=== PATIENT | male | born 1980 | race Caucasian/White ===

== ENCOUNTER 2016-03-28 21:29 | Emergency (ER) | payer BC ==
[2016-03-28] MEDS ORDERED: DEXAMETHASONE 4 MG TAB PO ONE (22:31)
--- NOTE | 2016-03-28 22:44 | UCPHY ---
H & P Time Seen by Provider: 03/28/16 22:25 Patient Type: Established HPI/ROS: This patient presents with subglottic swelling. He reports 2 days of symptoms were initially mild yesterday. He was seen in [place] at [facility] [address] this morning and started on Augmentin. He took 2875 mg doses and has been taking ibuprofen regularly with partial relief of the discomfort until tonight the discomfort became 2009 despite ibuprofen. He reports increasing odynophagia and now some pain extending into the right neck. He had some subjective low-grade fevers and myalgias prior to the treatment with the Augmentin. He reports that the urgent care had the impression that he had a salivary gland infection. ROS: No high fevers or chills. No other constitutional symptoms. No coughing. No recent dental procedures. No trauma. 7 point ROS is otherwise negative. Past Medical/Surgical History: Otherwise healthy Smoking Status: Never smoked Physical Exam: Physical Exam Vital signs are normal. He has no fever. He is no distress. General: No acute distress HEENT: Oropharynx: Mallampati 3 airway. There is subglottic swelling on the right side. He has mild submandibular tenderness on the right side that extends to the neck. No dysphonia. He does have mild trismus. No drooling or stridor. Ears: External canals and TMs are clear bilaterally. Eyes: Pupils equal and react to light. Extraocular motions are intact. Lungs: Clear to auscultation bilaterally. No respiratory distress. Cardiac: Regular rate and rhythm with no murmur gallop or rub Skin: No rash or pallor. Neuro: Alert with no sensorimotor deficits. Initial differential diagnosis: Renula, Tucker's angina other subglottic lesion Constitutional: Initial Vital Signs Temperature (C) 36.7 C 03/28/16 21:46 Heart Rate 90 03/28/16 21:46 Respiratory Rate 16 03/28/16 21:46 Blood Pressure 122/74 H 03/28/16 21:46 O2 Sat (%) 95 03/28/16 21:46 O2 Delivery Mode Room Air Allergies/Adverse Reactions: No Known Allergies Allergy (Verified 03/28/15 18:44) Home Medications: Medication Instructions Recorded Augmentin 875 MG TAB (*) 03/28/16 Medical Decision Making ED Course/Re-evaluation: Decadron 10 mg p. o.. We do not have CT imaging here tonight. I spoke with Dr. soto the emergency physician at [facility] accepts the patient for transfer for further evaluation. Discussion: The patient appears nontoxic here without fever. I suspect renewal out given lack of fever but with Augmentin antibiotic he may have a Tucker's angina early in its progress without significant findings other than the subglottic swelling. Departure - Departure Disposition: [facility] ER Clinical Impression: Ranula Condition: Good Additional Instructions: Diagnosis: Ranula (salivary gland swelling in floor of mouth) Plan: Go directly to [facility] Emergency Department without eating or drinking anything for further evaluation. Differential diagnosis for this problem could include infection that would require further acute medical attention. You received Decadron a steroid-10 mg dose while here - PQRS PQRS Measurement: NA
[2016-03-28 23:32] VITALS: TEMP 101.5
[2016-03-28] MEDS ORDERED: HYDROCODONE/APAP 5/325 TAB PO ONE (23:41)
[2016-03-28] MEDS ORDERED: IOPAMIDOL (ISOVUE-300) 100 ML BTL IV ONE (23:44)
[2016-03-28] MEDS ORDERED: ACETAMINOPHEN 500 MG TAB PO ONE (23:52)
[2016-03-28] MEDS ORDERED: ONDANSETRON 4 MG/2 ML VIAL IVP ONE (23:53)
--- NOTE | 2016-03-29 00:03 | EDPHY ---
H & P Time Seen by Provider: 03/28/16 22:25 HPI/ROS: HPI The patient presents with 2 days of pain in his right mouth, near the floor of his mouth. The pain started slowly and has gotten progressively worse. It has been associated with some drooling and now a fever. He was seen at the [place] urgent care and given a prescription for Augmentin, he has taken 2 doses. He has no prior history of similar. He has not had any recent dental procedures. He feels well otherwise.. REVIEW OF SYSTEMS Constitutional: + fever, no chills. Eyes: No discharge. ENT: No sore throat. Cardiovascular: No chest pain, no palpitations. Respiratory: No cough, no shortness of breath. Gastrointestinal: No abdominal pain, no vomiting. Genitourinary: No hematuria. Musculoskeletal: No back pain. Skin: No rashes. Neurological: No headache. PMHx: Healthy PHYSICAL General Appearance: Alert, no distress Eyes: Pupils equal and round no pallor or injection ENT, Mouth: Mucous membranes moist, floor of right mouth with area of fluctuance adjacent to his mandible which is tender with some surrounding fullness Neck: Full range of motion, right-sided lymphadenopathy is present, no tenderness, no erythema Respiratory: There are no retractions, lungs are clear to auscultation Cardiovascular: Regular rate and rhythm Gastrointestinal: Abdomen is soft and non-tender, no masses, bowel sounds normal Neurological: A&O, moves all extremities Skin: Warm and dry, no rashes Musculoskeletal: Neck is supple non tender Extremities: symmetrical, full range of motion Psychiatric: Patient is oriented X 3, there is no agitation Source: Patient Exam Limitations: No limitations - Personal History Tetanus Vaccine Date: 2012 - Medical/Surgical History Hx Asthma: Yes Hx Chronic Respiratory Disease: No Hx Diabetes: No Hx Cardiac Disease: No Hx Renal Disease: No Hx Cirrhosis: No Hx Alcoholism: No Hx HIV/AIDS: No Hx Splenectomy or Spleen Trauma: No Other PMH: denies - Social History Smoking Status: Never smoked Constitutional: Initial Vital Signs Temperature (C) 36.7 C 03/28/16 21:46 Heart Rate 90 03/28/16 21:46 Respiratory Rate 16 03/28/16 21:46 Blood Pressure 122/74 H 03/28/16 21:46 O2 Sat (%) 95 03/28/16 21:46 O2 Delivery Mode Room Air Allergies/Adverse Reactions: No Known Allergies Allergy (Verified 03/28/15 18:44) Home Medications: Medication Instructions Recorded Augmentin 875 MG TAB (*) 03/28/16 Medical Decision Making - Diagnostics Imaging: CT Neck: No mass or cellulitis. No significant nodes. No radioapaque calculus w attention to submandibular duct to tongue phrenula Discussed with Dr. Small of Radiology. ED Course/Re-evaluation: The patient was given medication for his pain with improvement in his symptoms. Basic labs were checked any does have a leukocytosis, raising suspicion for infection. He also developed a fever while in the emergency room. His airway remained patent. CT scan was performed which was relatively unremarkable. I feel he does have submandibular sialoadenitis even though stone is not present on CT scan. I have discussed this with him. Because he has been on Augmentin just for 1 day I think he should continue this antibiotic to see if he has any improvement before I would change his antibiotic. I will send him home with some pain medication and information for follow-up with your nose and throat. He is in agreement with this plan. Differential Diagnosis: This is a healthy 36-year-old man who presents for evaluation of right floor of mouth swelling which has been present for the last 2 days and getting progressively worse. This does not appear to be Tucker's angina as the swelling is not diffuse, he does not have any neck pain or recent dental procedures. He could have salivary gland infection or blocked duct. Other considerations include internal jugular vein thrombophlebitis, retropharyngeal abscess. - Data Points Laboratory Results: Laboratory Results 03/28/16 23:45 03/28/16 23:45 03/28/16 23:45 WBC 14.13 H 10^3/uL (3.80-9.50) RBC 4.96 10^6/uL (4.40-6.38) Hgb 16.0 g/dL (13.7-17.5) Hct 43.3 % (40.0-51.0) MCV 87.3 fL (81.5-99.8) MCH 32.3 pg (27.9-34.1) MCHC 37.0 H g/dL (32.4-36.7) RDW 11.3 L % (11.5-15.2) Plt Count 215 10^3/uL (150-400) MPV 11.2 fL (8.7-11.7) Neut % (Auto) 87.4 H % (39.3-74.2) Lymph % (Auto) 5.7 L % (15.0-45.0) [place] % (Auto) 6.1 % (4.5-13.0) Eos % (Auto) 0.1 L % (0.6-7.6) Baso % (Auto) 0.3 % (0.3-1.7) Nucleat RBC Rel Count 0.0 % (0.0-0.2) Absolute Neuts (auto) 12.35 H 10^3/uL (1.70-6.50) Absolute Lymphs (auto) 0.81 L 10^3/uL (1.00-3.00) Absolute Monos (auto) 0.86 H 10^3/uL (0.30-0.80) Absolute Eos (auto) 0.02 L 10^3/uL (0.03-0.40) Absolute Basos (auto) 0.04 10^3/uL (0.02-0.10) Absolute Nucleated RBC 0.00 10^3/uL (0-0.01) Immature Gran % 0.4 % (0.0-1.1) Immature Gran # 0.05 10^3/uL (0.00-0.10) Sodium 139 mEq/L (134-144) Potassium 4.2 mEq/L (3.5-5.2) Chloride 105 mEq/L (97-110) Carbon Dioxide 26 mEq/l (22-31) Anion Gap 8 mEq/L (8-16) BUN 15 mg/dL (7-23) Creatinine 1.0 mg/dL (0.7-1.3) Estimated GFR > 60 Glucose 107 H mg/dL (70-100) Calcium 9.1 mg/dL (8.5-10.4) Medications Given: Discontinued Medications Acetaminophen (Tylenol) 1,000 mg PO EDNOW ONE Stop: 03/28/16 23:53 Last Admin: 03/29/16 00:03 Dose: 1,000 mg Acetaminophen/Hydrocodone Bitart ([place] 5/325) 2 tab PO EDNOW ONE Stop: 03/28/16 23:42 Last Admin: 03/28/16 23:54 Dose: Not Given Dexamethasone (Decadron) 10 mg PO EDNOW ONE Stop: 03/28/16 22:32 Last Admin: 03/28/16 22:44 Dose: 10 mg Hydromorphone HCl (Dilaudid) 1 mg IVP EDNOW ONE Stop: 03/29/16 01:14 Last Admin: 03/29/16 01:14 Dose: 1 mg Morphine Sulfate (Morphine) 4 mg IVP EDNOW ONE Stop: 03/28/16 23:54 Last Admin: 03/29/16 00:04 Dose: 4 mg Ondansetron HCl (Zofran) 4 mg IVP EDNOW ONE Stop: 03/28/16 23:54 Last Admin: 03/29/16 00:05 Dose: 4 mg Departure - Departure Disposition: Home, Routine, Self-Care Clinical Impression: Sialadenitis Condition: Good Instructions: Sialoadenitis (ED) Additional Instructions: You can call the Ear Nose and Throat doctors in the morning for an appointment. Please use warm compresses as needed and hard candies. You should return to the emergency room if you have any difficulty breathing or swallowing. Please continue your antibiotics. Referrals: Aletha Mcclendon MD [Medical Doctor] - As per Instructions
[2016-03-29 00:06] LABS: % IMMATURE GRANULYOCYTES 0.4 % (0.0-1.1); ABSOLUTE IMMATURE GRANULOCYTES 0.05 10^3/uL (0.00-0.10); ADD DIFF? NO; ADD MORPH? NO; ADD SCAN? NO; ATYPICAL LYMPHOCYTE FLAG 0 (0-99); FRAGMENT RBC FLAG 0 (0-99); HEMATOCRIT 43.3 % (40.0-51.0); LEFT SHIFT FLG 0 (0-99); LIPEMIA HEMOLYSIS FLAG 90 (0-99); MEAN CELL HEMOGLOBIN 32.3 pg (27.9-34.1); MEAN CELL VOLUME 87.3 fL (81.5-99.8); MEAN PLATELET VOLUME 11.2 fL (8.7-11.7); PLATELET CLUMPS FLAG 10 (0-99); PLATELET COUNT 215 10^3/uL (150-400); RED BLOOD CELL COUNT 4.96 10^6/uL (4.40-6.38); RED CELL DISTRIBUTION WIDTH 11.3 % (11.5-15.2)
[2016-03-29 00:11] LABS: ANION GAP 8 mEq/L (8-16); CALCIUM 9.1 mg/dL (8.5-10.4); CARBON DIOXIDE 26 mEq/l (22-31); CHLORIDE 105 mEq/L (97-110); GLOMERULAR FILTRATION RATE > 60; GLUCOSE 107 mg/dL (70-100); POTASSIUM 4.2 mEq/L (3.5-5.2); SODIUM 139 mEq/L (134-144)
[2016-03-29] MEDS ORDERED: HYDROmorphONE/DILAUDID 1 MG/ML SYR ONE (01:08)
[2016-03-29] MEDS ORDERED: HYDROmorphONE/DILAUDID 1 MG/ML SYR IVP ONE (01:13)
[2016-03-29] MEDS ORDERED: HYDROCOD/APAP 5/325 PREPACK#6 BTL TAKEHOME ONE (01:22)
[2016-03-29 01:44] VITALS: BP 124/80; PULSE 66; RESP 16; O2SAT 96
--- NOTE | 2016-03-29 12:15 | CT ---
CT Neck With Contrast History: Painful lump under tongue since 03/27/16. Swelling. Technique: Spiral imaging was obtained from the base of the skull to the lung apices with the administration of 90 mL of Isovue-300 IV contrast. Images were reconstructed in multiple planes. Dose reduction techniques were utilized. Findings: The soft tissues about the neck are symmetric and normal in appearance without significant swelling. There is no evidence of a calculus along the course of the submandibular or parotid glands. The submandibular and parotid glands are also normal in appearance without evidence of mass or ductal dilatation. The musculature is symmetric about the neck. There is no lymphadenopathy. There is normal enhancement of the vasculature. Mild mucosal thickening is seen in the inferior left maxillary sinus. The remainder of the paranasal sinuses and mastoid air cells are clear. Parapharyngeal soft tissues are normal. The thyroid enhances normally as well. Skeletal system: Vertebral body heights are well maintained. There are no lytic or sclerotic osseous lesions. There is mild intervertebral disk space narrowing at C5-C6 and C6-C7 with associated disk bulges that probably contributes to some underlying spinal stenosis. Impression: 1. No evidence of radiopaque calculus with attention to the right submandibular gland and submandibular duct. A small subcentimeter calculus could be missed secondary to small size. There is also some artifact from dental hardware at the level of the base of the tongue. 2. Minimal mucosal thickening inferior left maxillary sinus. 3. Mild disk space narrowing with disk bulge at C5-C6 and C6-C7 with associated spinal stenosis. A preliminary report was called to Dr. Peggy Huntley as an emergency on- call case at 0105 hours. The preliminary report and final dictation are concordant. [id number] [id number]
== END 2016-03-29 01:44 | disposition home or self-care (01) ==
LOC: CED 21:29
DX: K11.20 Sialoadenitis, unspecified (principal); J45.909 Unspecified asthma, uncomplicated
CPT/HCPCS: 96374; G0463-PO; J1170; J2405; Q9967